=== PATIENT | male | born 1940 | race Caucasian/White ===

== ENCOUNTER → 2016-09-06 | Outpatient (CLI) | payer MEDICARE, OTHER ==
[~2016-09-06] MED LIST: ASP81TEC PO; CALC-80 PO; CHOL200018 PO; COLC0.6T7 PO; DIAZ-345 PO; LEVO175T2 PO; METH4TAB PO; MTH/1CAP PO; MULT-608 PO; NAPR220C11; NIFE30TA82 PO; POTA99TA7 PO; PRD20T PO; ROSU10TA12; VITA200C53 PO; [UNRECOGNIZED DRUG - CODE] PO
--- NOTE | 2016-09-06 15:42 | Diagnostic Imaging Report ---
EXAMINATION: Three views of the cervical spine. INDICATION: Neck pain. FINDINGS: There is satisfactory alignment of the cervical spine. The vertebral body heights are preserved. The disc heights are also preserved. Degenerative changes with anterior osteophytes are seen. No definite posterior osteophyte. There are sclerotic changes along the facet joints, compatible with degenerative changes. The alignment of the lateral masses of C1 and C2 is satisfactory. IMPRESSION: Degenerative facet and disc changes. Dictated by: Dictated on workstation # [id number]
== END ==
LOC: RAD 14:44
PROVIDERS: ATTEND Nurse Practitioner Family
DX: M50.30 Other cervical disc degeneration, unspecified cervical region (principal)
CPT/HCPCS: 72040

== ENCOUNTER → 2016-09-22 | Outpatient (CLI) | payer MEDICARE, OTHER ==
--- NOTE | 2016-09-22 16:06 | Diagnostic Imaging Report ---
CLINICAL INDICATION: Patient complains of neck pain. Onset three weeks. Patient has a history of 14-year-old accident to his neck and chronic neck pain. EXAM: MRI of the cervical spine performed without IV contrast. Sequences include sagittal T2, sagittal T1, sagittal T2 fat-sat, and axial T2. COMPARISON: None. FINDINGS: Limited visualization of the posterior fossa shows no significant abnormality. The cervical spinal cord has normal cord caliber with no significant abnormal cord signal. There is no significant paraspinal soft tissue abnormality. Besides the grade 1 anterolisthesis of C7 on T1, the cervical spine has normal alignment. No acute fracture or other dislocation. There is no significant abnormal cervical vertebral body signal. There are degenerative spurs seen throughout the cervical spine and facet arthropathy. C1-C2: There are degenerative spurs involving the atlanto-odontoid interval anteriorly. Otherwise, this level is unremarkable. C2-C3: There is moderate left facet arthropathy and mild right facet arthropathy. There is minimal ligamentum flavum buckling. There is minimal impression upon the thecal sac posteriorly. There is moderate right neural foraminal narrowing and at least mild left neural foraminal narrowing. C3-C4: There is a small central posterior disc protrusion/herniation and minimal ligamentum flavum buckling. There is inzf-ft-bqaptzou central canal narrowing. There is moderate bilateral facet arthropathy. There is at least bnupgoxk-jl-qamrxu bilateral neural foraminal narrowing. C4-C5: There is minimal ligamentum flavum buckling, severe left facet arthropathy/hypertrophy, and mild right facet arthropathy. There is severe left neural foraminal narrowing. There is no significant right neural foraminal narrowing or central canal narrowing. C5-C6: There is a small posterior disc bulge. There is severe left facet arthropathy/hypertrophy and omly-qe-dgxudbjy right facet arthropathy. There is severe left neural foraminal narrowing. There is mild ligamentum flavum buckling with mild central canal narrowing. There is at least mild right neural foraminal narrowing. C6-C7: There is a diffuse disc bulge with associated small central posterior disc extrusion/herniation. There is mild bilateral facet arthropathy and ligamentum flavum buckling. There is wsltwnxo-py-ulkvze central canal narrowing. There is severe bilateral neural foraminal narrowing. C7-T1: There is grade 1 anterolisthesis C7 on T1. There is moderate bilateral facet arthropathy. There is no significant central spinal canal or neural foraminal narrowing. IMPRESSION: 1: There is multilevel cervical spine degenerative disc disease with multilevel disc bulges, ligamentum flavum buckling, and facet arthropathy, which is worse at the C6-C7 level. This is described in detail above. 2: There is grade 1 anterolisthesis of C7 on T1. Results of this report were discussed with Dr. Kelly Mcclellan via the telephone on 09/22/2016 at 1505 hours. Dictated by: Dictated on workstation # [id number]
== END ==
LOC: RAD 13:44
PROVIDERS: ATTEND Orthopaedic Surgery
DX: M50.31 Other cervical disc degeneration, high cervical region (principal); M43.12 Spondylolisthesis, cervical region
CPT/HCPCS: 72141

== ENCOUNTER → 2016-12-24 | Outpatient (CLI) | payer MEDICARE, OTHER | LOC: RAD 13:29 | PROVIDERS: ATTEND Physician Assistant | DX: I35.1 Nonrheumatic aortic (valve) insufficiency (principal); I25.10 Atherosclerotic heart disease of native coronary artery without angina pectoris; I65.23 Occlusion and stenosis of bilateral carotid arteries; I10 Essential (primary) hypertension | CPT/HCPCS: 93306 ==

== ENCOUNTER → 2017-06-02 | Outpatient (CLI) | payer MEDICARE, OTHER ==
--- NOTE | 2017-06-02 21:10 | Diagnostic Imaging Report ---
Clinical indication: Patient with hematuria starting today. Patient has history of stones and prostate cancer. Patient has surgical history of gallbladder removal, hernia repair, appendectomy and prostate surgery. Exam: X-ray of the abdomen, supine view. Comparison: CT scan of the abdomen and pelvis performed without and with IV contrast dated 10/05/2006. Findings: Again seen are multiple surgical clips in the pelvis. There is a 3 mm calcification just right of the sacrum which is not definitively visualized on the prior CT scan. This may represent a phlebolith, but a distal right ureteral stone cannot be completely excluded. Otherwise there are no stones overlying the regions of both ureters. There is a small to moderate amount of stool seen throughout the colon. There is no intra-abdominal free air or evidence of intestinal obstruction. There are hypertrophic spurs seen throughout the spine. Impression: 1: There is a 3 mm calcification seen to the right of the mid sacral region. This may represent a phlebolith, but a distal right ureteral stone cannot be completely excluded. There is concern for a right ureteral stone, CT scan would better evaluate. 2: The remainder of the exam shows no other significant abnormality. Dictated by: Dictated on workstation # [id number]
== END ==
LOC: RAD 20:43
PROVIDERS: ATTEND Family Medicine
DX: H15.89 Other disorders of sclera (principal); R31.9 Hematuria, unspecified; Z87.442 Personal history of urinary calculi; Z85.46 Personal history of malignant neoplasm of prostate; Z90.49 Acquired absence of other specified parts of digestive tract; Z98.890 Other specified postprocedural states
CPT/HCPCS: 74018

== ENCOUNTER → 2017-06-08 | Outpatient (CLI) | payer MEDICARE, OTHER ==
--- NOTE | 2017-06-08 08:57 | Diagnostic Imaging Report ---
CLINICAL INDICATION: Patient with right-sided stone. EXAM: X-ray of the abdomen supine views. COMPARISON: X-ray of the abdomen dated 06/02/2017. FINDINGS: There is stable appearance and position of the calcification seen to the right side of mid sacral region. There are no other calcifications seen overlying the kidneys or expected pathways of the ureters. Again seen multiple surgical clips in the pelvis. There are phleboliths noted in the left pelvis region. There is a nonobstructed bowel gas pattern. There is no evidence of abdominal free air. There are hypertrophic spurs involving the visualized thoracic and lumbar spine. IMPRESSION: 1: Stable x-ray of the abdomen and pelvis with 3 mm calcification seen to the right of the mid sacral region. This may represent a renal stone in the distal right ureter versus phlebolith. CT scan of abdomen and pelvis would better evaluate. 2: The remainder of this exam shows no significant interval change compared to the prior study of comparison. Dictated by: Dictated on workstation # [id number]
== END ==
LOC: RAD 08:33
PROVIDERS: ATTEND Urology
DX: N20.0 Calculus of kidney (principal)
CPT/HCPCS: 74018

== ENCOUNTER → 2017-06-13 | Outpatient (CLI) | payer MEDICARE, OTHER ==
[~2017-06-13] MED LIST changes: +CATHETER FLUSH 10 ML SYR IV PRN; +IOHEXOL 350 MG/ML 100 ML (OMNIPAQUE 350) VIAL IV ONE; +NS 100 ML (IVPB) BAG IV ONE
[2017-06-13 11:44] LABS: BUN/CREATININE RATIO 20; CREATININE SERUM 0.97 MG/DL (0.60-1.30); GFR ESTIMATED > 60
--- NOTE | 2017-06-13 13:54 | Diagnostic Imaging Report ---
PROCEDURE: CT abdomen and pelvis with and without contrast. TECHNIQUE: Precontrast acquisitions were acquired through the abdomen and pelvis. Multiple contiguous axial images were obtained through the abdomen and pelvis after the administration of intravenous contrast. INDICATION: Gross hematuria. COMPARISON: Comparison is made with prior CT of the abdomen and pelvis from 10/05/2006. FINDINGS: The lung bases are clear. Multiple well-defined low-density masses within the liver are noted consistent with cysts. The gallbladder is unremarkable. The pancreas and spleen are unremarkable. No adrenal mass is detected. There are multiple renal cysts bilaterally. There is an enlarging cyst in the posterior aspect of the left kidney measured 3.5 cm. This compares with 1.3 cm on prior. No enhancement is detected. No renal calculi are detected. There is no hydronephrosis. The ureters are normal in course and caliber. The bladder is unremarkable. No wall thickening or masses detected. The aorta is heavily calcified but non-aneurysmal. Small and large bowel loops are of normal caliber. There is significant diverticulosis of the sigmoid colon but no evidence of acute diverticulitis. There is no ascites. There are postop changes in the pelvis with multiple surgical clips present. Bony structures are unremarkable. IMPRESSION: 1. Hepatic and renal cysts. 2. No evidence of urinary tract calculi, solid mass or hydronephrosis. 3. Uncomplicated diverticulosis. Dictated by: Dictated on workstation # [id number]
== END ==
LOC: RAD 10:58
PROVIDERS: ATTEND Urology
DX: N28.1 Cyst of kidney, acquired (principal); K76.89 Other specified diseases of liver; K57.30 Diverticulosis of large intestine without perforation or abscess without bleeding
CPT/HCPCS: 36415; 74178; 82565; 84520

== ENCOUNTER → 2018-02-28 | Outpatient (CLI) | payer MEDICARE, OTHER ==
[~2018-02-28] MED LIST changes: -CATHETER FLUSH 10 ML SYR IV PRN; -IOHEXOL 350 MG/ML 100 ML (OMNIPAQUE 350) VIAL IV ONE; -NS 100 ML (IVPB) BAG IV ONE
--- NOTE | 2018-02-28 18:23 | Diagnostic Imaging Report ---
INDICATION: Shortness of breath. TIME OF EXAM: 4:17 p.m. COMPARISON: Comparison is made with prior chest from 01/29/2016. The heart size is normal. The pulmonary vascularity is unremarkable. The lungs are clear. No infiltrate, effusion or pneumothorax is detected. IMPRESSION: No acute cardiopulmonary process is detected. Dictated by: Dictated on workstation # [id number]
== END ==
LOC: RAD 15:40
PROVIDERS: ATTEND Internal Medicine Cardiovascular Disease
DX: C61 Malignant neoplasm of prostate (principal); I65.23 Occlusion and stenosis of bilateral carotid arteries; I10 Essential (primary) hypertension; I34.0 Nonrheumatic mitral (valve) insufficiency; I25.10 Atherosclerotic heart disease of native coronary artery without angina pectoris
CPT/HCPCS: 71046

== ENCOUNTER → 2018-03-15 | Outpatient (CLI) | payer MEDICARE, OTHER ==
[~2018-03-15] MED LIST changes: +CATHETER FLUSH 10 ML SYR IV PRN
[2018-03-15 10:01] VITALS: BP 192/77
--- NOTE | 2018-03-15 18:46 | STRESS TEST ---
DATE OF SERVICE: 03/15/2018 EXERCISE MYOVIEW STRESS TEST REPORT REFERRING PHYSICIAN: Dr. Mcclellan. Baseline heart rate is 62, baseline blood pressure is 138/72. Baseline EKG is sinus rhythm with frequent PVCs. In summary, the patient was injected with 10.65 mCi of technetium-99 Myoview and the resting images were obtained. Then, the patient started exercising with a baseline heart rate, blood pressure and EKG mentioned above. At peak stress level, the patient was injected with 30.6 mCi of technetium-99 Myoview. He was able to exercise for 5 minutes 30 seconds on standard Mata protocol. With peak exercise level, the patient continued to have frequent PVCs with [address] depression in lead 3 and aVF. No acute ischemic changes. The resting and stress images were reviewed and compared in the short axis, horizontal long axis, and vertical long axis views. Review of the images showed diaphragmatic attenuation with decreased uptake at the anterior apical segment with subtle reversibility, no significant ischemia was noted. SSS is 4, SDS is 4, TID value 1.01. On the gated images, the left ventricle appeared to be in normal size with normal contractility. Calculated ejection fraction 53%. CONCLUSION: 1. Fair exercise tolerance, a total of 5 minutes 32 seconds on standard Mata protocol, total of 7.1 METS achieving 86% of maximum expected heart rate. 2. Baseline hypertension with severe hypertensive response to exercise returned to baseline during recovery. 3. Frequent premature ventricular contractions persisted throughout test. 4. Diaphragmatic attenuation with subtle abnormality, no significant ischemia was noted. 5. Normal left ventricular size with normal contractility. Calculated ejection fraction 53%. Job ID: [id number] DocumentID: [id number] Dictated Date: 03/15/2018 13:29:56 [employer] Date: 03/15/2018 18:45:22 Dictated By: SHARIF BHAGAT MD
== END ==
LOC: CARD 07:58
PROVIDERS: ATTEND Internal Medicine Cardiovascular Disease
DX: I25.10 Atherosclerotic heart disease of native coronary artery without angina pectoris (principal); I10 Essential (primary) hypertension; I34.0 Nonrheumatic mitral (valve) insufficiency; C61 Malignant neoplasm of prostate
CPT/HCPCS: 78452; 93017

== ENCOUNTER → 2018-03-16 | Outpatient (CLI) | payer MEDICARE, OTHER ==
[~2018-03-16] MED LIST changes: -CATHETER FLUSH 10 ML SYR IV PRN
== END ==
LOC: CARD 13:02
PROVIDERS: ATTEND Internal Medicine Cardiovascular Disease
DX: I25.10 Atherosclerotic heart disease of native coronary artery without angina pectoris (principal); I65.29 Occlusion and stenosis of unspecified carotid artery; I10 Essential (primary) hypertension; I34.0 Nonrheumatic mitral (valve) insufficiency; C61 Malignant neoplasm of prostate; I08.3 Combined rheumatic disorders of mitral, aortic and tricuspid valves
CPT/HCPCS: 93306

== ENCOUNTER → 2018-09-18 | Outpatient (CLI) | payer MEDICARE, OTHER | LOC: RT 14:29 | PROVIDERS: ATTEND Internal Medicine Cardiovascular Disease | DX: I35.0 Nonrheumatic aortic (valve) stenosis (principal); I25.10 Atherosclerotic heart disease of native coronary artery without angina pectoris; I10 Essential (primary) hypertension | CPT/HCPCS: 94060; 94726; 94729 ==

== ENCOUNTER → 2019-05-28 | Outpatient (CLI) | payer MEDICARE ==
--- NOTE | 2019-05-28 15:12 | Diagnostic Imaging Report ---
PROCEDURE: US Scrotum. TECHNIQUE: Multiple real-time grayscale images were obtained over the scrotum in various projections bilaterally. INDICATION: Testicular swelling. FINDINGS: There are no prior studies available for comparison. Spectral and color-flow imaging was also performed. Both testicles are identified. The right testicle measures 4.9 x 2.3 x 3.6 while the left testicle is estimated to be 4.7 x 2.5 x 3.6 cm. There is no evidence for a solid testicular mass and there is no sign of torsion. The left epididymis is somewhat prominent and does appear to contain a small area of calcification. The left epididymis is not hyperemic however and there is no sign of epididymitis. The right epididymis is slightly smaller than the left. There is no evidence for epididymitis on the right either. There is a small septated hydrocele on the left. There is no evidence for hydrocele formation on the right and there is no sign of varicocele formation. IMPRESSION: 1. There is no solid testicular mass or torsion. 2. There is no evidence for acute epididymitis. The small area of calcification within the left epididymis is of uncertain etiology. This could be a sequela of prior episodes of inflammation. 3. There is a small septated hydrocele on the left. Dictated by: Dictated on workstation # [id number]
== END ==
LOC: RAD 12:05
PROVIDERS: ATTEND Nurse Practitioner Family
DX: N50.89 Other specified disorders of the male genital organs (principal); N43.2 Other hydrocele
CPT/HCPCS: 76870

== ENCOUNTER 2019-09-22 11:30 | Emergency (ER) | payer MEDICARE | END 2019-09-22 11:42 | disposition left against medical advice (07) | LOC: ER 11:30 | DX: R05 Cough (principal) ==

== ENCOUNTER 2020-01-28 22:00 | Emergency (ER) | payer MEDICARE, OTHER ==
[~2020-01-28] VITALS: Ht 182.9 cm; Wt 95.3 kg
[2020-01-28] MEDS ORDERED: CEPHALEXIN 250 MG (KEFLEX) CAP PO STA (22:43)
[2020-01-28 22:49] VITALS: BP 146/84
--- NOTE | 2020-01-28 22:52 | ED Lower Extremity ---
General Stated Complaint: RIGHT FOOT LACERATION Source: patient Exam Limitations: no limitations History of Present Illness Date Seen by Provider: Jan 28, 2020 Time Seen by Provider: 22:25 Initial Comments Here with report of laceration to the bottom of the right foot near the fifth digit. States that he scraped his foot across a grate that caused the bleeding. Denies other injury. Tetanus up-to-date. Onset: just prior to arrival (proximally 30 minutes ago) Pain/Injury Location: right foot Method of Injury: incised Modifying Factors: Improves With Immobilization; Worse With Movement Allergies and Home Medications Allergies Coded Allergies: bupivacaine (Verified Allergy, Intermediate, 10/05/12) triamcinolone (Verified Allergy, Intermediate, 10/05/12) Home Medications Calcium Carbonate/Vitamin D3 1 Each Tablet, 2 EACH PO DAILY, (Reported) Cholecalciferol (Vitamin D3) 2,000 Unit Capsule, 2,000 UNIT PO DAILY, (Reported) Diazepam 5 Mg Tablet, 1 EACH PO TID PRN Prescribed by: CHARLENE NEFF on 06/13/141747 Levothyroxine Sodium 175 Mcg Tablet, 1 EACH PO DAILY, (Reported) Methylprednisolone 4 Mg/Dose-Pack Tab.ds.pk, 0 PO UD Prescribed by: EDSON BOSS on 10/05/12 0852 Multivitamins 1 Tab Tablet, 1 TAB PO DAILY, (Reported) Nifedipine 30 Mg Tab.osm.24, 1 EACH PO DAILY, (Reported) Phytosterol 400 Mg Tablet, 400 MG PO DAILY, (Reported) Potassium 99 Mg Tablet, 20 MG PO DAILY, (Reported) Prednisone 20 Mg Tab, 40 MG PO DAILY Prescribed by: CHARLENE NEFF on 06/13/141747 Vitamin E (Dl,Tocopheryl Acet) 200 Unit Capsule, 200 UNIT PO DAILY, (Reported) Patient Home Medication List Home Medication List Reviewed: Yes Review of Systems Constitutional: see HPI; No chills, No fever Respiratory: no symptoms reported Cardiovascular: no symptoms reported Musculoskeletal: No joint pain, No joint swelling Skin: see HPI, change in color, lesions Past Cuuhuhq-Obpvoo-Yhlsnj Hx Past Med/Social Hx: Reviewed Nursing Past Med/Soc Hx Patient Social History Recent Foreign Travel: No Contact w/Someone Who Travel: No Immunizations Up To Date Tetanus Booster (TDap): Less than 5yrs Seasonal Allergies Seasonal Allergies: No Past Medical History Surgeries: Yes Orthopedic, Prostatectomy, Tonsillectomy Irregular Heartbeat Reproductive Disorders: No Sexually Transmitted Disease: No Genitourinary: Yes Prostate Problems Gastrointestinal: Yes Colitis Musculoskeletal: Yes Arthritis, Back Injury, Chronic Back Pain Endocrine: Yes Hypothyroidsim Prostate, Skin Family Medical History Reviewed Nursing Family Hx Physical Exam Vital Signs Capillary Refill : Height, Weight, BMI Height: 6'0" Weight: 210lbs. oz. 95.038042cu; BMI Method:Estimated General Appearance: WD/WN, no apparent distress Cardiovascular: regular rate, rhythm, no murmur Respiratory: lungs clear, normal breath sounds Feet: right foot pain, right foot soft tissue tenderness, right foot other (1 cm x 3 cm superficial skin avulsion to the bottom of the foot in line with the fifth metatarsal up to but not including the fifth digit.) Neurologic/Psychiatric: alert, oriented x 3 Skin: warm/dry, other (wound as above) Progress/Results/Core Measures Results/Orders My Orders Orders - CHARLENE NEFF MD Cephalexin Capsule (Keflex Capsule) (01/28/20 22:43) Progress Progress Note : Progress Note Seen and evaluated. Wound cleaned with copious amount of sterile saline. Wound examined and is not amiable to suturing as it is more of a divot and tissue loss. Callus skin removed. Wound covered with Xeroform gauze and bulky dressing. Tetanus up-to-date. Keflex 500 mg by mouth ordered. Discharged home with return precautions. Patient and family verbalize understanding instructions and agreeme nt with plan. We will do wound check on Tuesday. Departure Impression Primary Impression: Laceration of right foot excluding toes Qualified Codes: S91.311A - Laceration without foreign body, right foot, initial encounter Disposition: HOME, SELF-CARE Condition: Stable Departure-Patient Inst. Decision time for Depature: 22:55 Referrals: KANIKA MAGAÑA MD (PCP/Family) Primary Care Physician Patient Instructions: Wound Care (DC) Add. Discharge Instructions: Returned Tuesday at around 11 AM, 01/30/20, for recheck of wound and dressing change. Take antibiotics as directed. You may replace dressing if it becomes soiled but otherwise leave it in place until wound check. Return for worse pain, swelling, fever, foul-smelling drainage or other concerns as needed. Scripts Cephalexin (Cephalexin) 500 Mg Tablet 500 MG PO QID, #28 TAB 0 Refills Prov: CHARLENE NEFF MD 01/28/20 CHARLENE NEFF MD Jan 28, 2020 22:52
--- NOTE | 2020-01-28 22:54 | NUR ---
Wound cleaned with NS et chlorhexidine solution. Xeroform gauze applied et covered with gauze drsg.
[2020-01-28] MEDS ORDERED: CEPH500T PO (22:57)
[2020-01-29] MEDS ORDERED: CEPH500C PO (02:02)
== END 2020-01-28 23:00 | disposition home or self-care (01) ==
LOC: EDUNIT# 22:00 → ER 22:02
DX: S91.311A Laceration without foreign body, right foot, initial encounter (principal); E03.9 Hypothyroidism, unspecified; Z79.890 Hormone replacement therapy; Z88.8 Allergy status to other drugs, medicaments and biological substances; Z79.52 Long term (current) use of systemic steroids; W23.1XXA Caught, crushed, jammed, or pinched between stationary objects, initial encounter
CPT/HCPCS: 99283

== ENCOUNTER 2020-01-30 11:07 | Emergency (ER) | payer MEDICARE, OTHER ==
[~2020-01-30] VITALS: Ht 182.9 cm; Wt 95.3 kg
[~2020-01-30 11:07] MED LIST changes: +CEPH500C PO; +CEPH500T PO
[2020-01-30 11:13] VITALS: BP 141/75
--- NOTE | 2020-01-30 11:24 | ED Lower Extremity ---
General Chief Complaint: Lower Extremity Stated Complaint: R TOE F/U Nursing Triage Note: PT AMBULATE TO TRIAGE FOR FOLLOW-UP AFTER RIGHT TOE INJURY. Nursing Sepsis Screen: No Definite Risk History of Present Illness Date Seen by Provider: Jan 30, 2020 Time Seen by Provider: 11:22 Initial Comments 79-year-old male presents for recheck of wound on right foot. Patient was seen here on 02-14 following a injury to his plantar aspect of his right great toe. Patient was instructed to come back to recheck at the well. He has no increased pain, he is able to ambulate using a walker. He is been changing dressing as instructed, no discharge. He was placed on Keflex. Allergies and Home Medications Allergies Coded Allergies: bupivacaine (Verified Allergy, Intermediate, 10/05/12) triamcinolone (Verified Allergy, Intermediate, 10/05/12) Home Medications Calcium Carbonate/Vitamin D3 1 Each Tablet, 2 EACH PO DAILY, (Reported) Cephalexin 500 Mg Capsule, 500 MG PO QID Prescribed by: CHARLENE NEFF on 01/29/20 0202 Cholecalciferol (Vitamin D3) 2,000 Unit Capsule, 2,000 UNIT PO DAILY, (Reported) Diazepam 5 Mg Tablet, 1 EACH PO TID PRN Prescribed by: CHARLENE NEFF on 06/13/14 1748 Levothyroxine Sodium 175 Mcg Tablet, 1 EACH PO DAILY, (Reported) Methylprednisolone 4 Mg/Dose-Pack Tab.ds.pk, 0 PO UD Prescribed by: EDSON BOSS on 10/05/12 0852 Multivitamins 1 Tab Tablet, 1 TAB PO DAILY, (Reported) Nifedipine 30 Mg Tab.osm.24, 1 EACH PO DAILY, (Reported) Phytosterol 400 Mg Tablet, 400 MG PO DAILY, (Reported) Potassium 99 Mg Tablet, 20 MG PO DAILY, (Reported) Prednisone 20 Mg Tab, 40 MG PO DAILY Prescribed by: CHARLENE NEFF on 06/13/14 1748 Vitamin E (Dl,Tocopheryl Acet) 200 Unit Capsule, 200 UNIT PO DAILY, (Reported) Patient Home Medication List Home Medication List Reviewed: Yes Review of Systems Constitutional: No chills, No fever EENTM: no symptoms reported Respiratory: no symptoms reported Cardiovascular: no symptoms reported Gastrointestinal: no symptoms reported Genitourinary: no symptoms reported Musculoskeletal: see HPI Skin: see HPI Psychiatric/Neurological: No Symptoms Reported Past Ofuaocs-Nwgzgf-Vammpo Hx Past Med/Social Hx: Reviewed Nursing Past Med/Soc Hx Patient Social History Alcohol Use: Denies Use Recreational Drug Use: No (ALCOHOL QUIT 23 YRS AGO) Smoking Status: Never a Smoker 2nd Hand Smoke Exposure: No Recent Foreign Travel: No Contact w/Someone Who Travel: No Recent Infectious Disease Expo: No Physical Abuse: No Sexual Abuse: No Mistreated: No Fear: No Immunizations Up To Date Tetanus Booster (TDap): Less than 5yrs Seasonal Allergies Seasonal Allergies: No Past Medical History Surgeries: Yes Orthopedic, Prostatectomy, Tonsillectomy Respiratory: No Cardiac: Yes (PVC'S) Irregular Heartbeat Neurological: No Reproductive Disorders: No Sexually Transmitted Disease: No Genitourinary: Yes Prostate Problems Gastrointestinal: Yes Colitis Musculoskeletal: Yes Arthritis, Back Injury, Chronic Back Pain Endocrine: Yes Hypothyroidsim Cancer: Yes (squamous cell carcinoma) Prostate, Skin Psychosocial: No Integumentary: No Blood Disorders: No Physical Exam Vital Signs Vital Signs - First Documented 01/30/20 11:13 Temp 36.4 Pulse 61 Resp 17 B/P (MAP) 141/75 (97) O2 Delivery Room Air Capillary Refill : Less Than 3 Seconds Height, Weight, BMI Height: 6'0" Weight: 210lbs. oz. 95.545097ee; 28.00 BMI Method:Estimated General Appearance: no apparent distress Cardiovascular: normal peripheral pulses, regular rate, rhythm Respiratory: lungs clear, normal breath sounds Feet: right foot soft tissue tenderness, right foot swelling Skin: other (wound to the plantar aspect of the right great toe shows no signs of infection appropriate healing at this point.) Progress/Results/Core Measures Results/Orders Vital Signs/I&O 01/30/20 11:13 Temp 36.4 Pulse 61 Resp 17 B/P (MAP) 141/75 (97) O2 Delivery Room Air Blood Pressure Mean: 97 Progress Progress Note : Time: 11:28 Progress Note Discussed with patient the need to continue dressing changes, keep clean with warm soapy water. He should follow-up with his primary care provider Tuesday or Tuesday of next week for recheck in today symptoms and further monitoring. Patient stable and discharged home Departure Impression Primary Impression: Encounter for wound re-check Disposition: 01 HOME, SELF-CARE Condition: Stable Departure-Patient Inst. Referrals: KANIKA MAGAÑA MD (PCP/Family) Primary Care Physician Patient Instructions: Wound Care (DC) Add. Discharge Instructions: Keep clean with warm soapy water Daily dressing changes Please schedule an appointment with your primary care provider on Tuesday or Tuesday of next week for recheck and long-term management All discharge instructions reviewed with patient and/or family. Voiced understanding. NIR HURLEY DO Jan 30, 2020 11:24
== END 2020-01-30 11:34 | disposition home or self-care (01) ==
LOC: EDUNIT# 11:07 → ER 11:08
DX: Z48.00 Encounter for change or removal of nonsurgical wound dressing (principal); E03.9 Hypothyroidism, unspecified; Z85.46 Personal history of malignant neoplasm of prostate; Z85.828 Personal history of other malignant neoplasm of skin; Z79.890 Hormone replacement therapy; Z88.8 Allergy status to other drugs, medicaments and biological substances; Z79.52 Long term (current) use of systemic steroids

== ENCOUNTER → 2020-03-06 | Outpatient (CLI) | payer MEDICARE, OTHER | LOC: CARD 15:00 | PROVIDERS: ATTEND Physician Assistant | DX: I08.3 Combined rheumatic disorders of mitral, aortic and tricuspid valves (principal) | CPT/HCPCS: 93306 ==

== ENCOUNTER → 2020-08-19 | Outpatient (CLI) | payer MEDICARE, OTHER ==
--- NOTE | 2020-08-19 09:59 | Diagnostic Imaging Report ---
INDICATION: Left hip pain. TIME OF EXAM: 9:40 AM. TECHNIQUE: Two views of the left hip were obtained. FINDINGS: There is normal femoroacetabular alignment. There is mild superior hip joint space narrowing. The femoral head and neck are intact. No fractures are seen. There are surgical clips in the left groin. IMPRESSION: Mild to moderate degenerative changes of the left hip. No acute hip fracture is detected. Dictated by: Dictated on workstation # [id number]
== END ==
LOC: RAD 09:27
PROVIDERS: ATTEND Nurse Practitioner Family
DX: M16.12 Unilateral primary osteoarthritis, left hip (principal)
CPT/HCPCS: 73502

== ENCOUNTER → 2020-09-05 | Outpatient (CLI) | payer MEDICARE, OTHER | LOC: CARD 12:00 | PROVIDERS: ATTEND Internal Medicine Cardiovascular Disease | DX: I08.3 Combined rheumatic disorders of mitral, aortic and tricuspid valves (principal); I11.9 Hypertensive heart disease without heart failure; I25.10 Atherosclerotic heart disease of native coronary artery without angina pectoris | CPT/HCPCS: 93306 ==

== ENCOUNTER → 2020-12-16 | Outpatient (CLI) | payer MEDICARE, OTHER ==
[~2020-12-16] MED LIST changes: +GADOBUTROL 10 MMOL/10 ML (GADAVIST) VIAL IV ONE
--- NOTE | 2020-12-16 10:41 | Diagnostic Imaging Report ---
PROCEDURE: MR imaging of the brain with and without contrast. TECHNIQUE: Multiplanar, multisequence MR imaging of the brain was performed with and without contrast. INDICATION: Memory problems. COMPARISON: 04/02/2008. Findings: No acute ischemia, mass, or hemorrhage. No abnormal enhancement. T2 hyperintense signal is seen in the periventricular and subcortical white matter. The ventricles and cortical sulci are prominent. The basilar cisterns are symmetric and unremarkable. The sellar and suprasellar regions have a normal appearance. The brainstem and posterior fossa are unremarkable. Mucosal thickening is seen throughout the paranasal sinuses. The mastoid air cells demonstrate normal signal characteristics. The globes and orbits are symmetric and unremarkable. The scalp and calvarium have a normal appearance. Effusion is seen in the left TMJ. Impression: 1. No acute ischemia, mass, or hemorrhage. No abnormal enhancement. 2. Generalized parenchymal volume loss with scattered chronic microvascular disease. 3. Mucosal thickening throughout the paranasal sinuses. 4. Joint effusion in the left TMJ. Dictated by: Dictated on workstation # [id number]
== END ==
LOC: RAD 09:21
PROVIDERS: ATTEND Family Medicine
DX: I67.89 Other cerebrovascular disease (principal); J34.89 Other specified disorders of nose and nasal sinuses; M26.69 Other specified disorders of temporomandibular joint
CPT/HCPCS: 70553

== ENCOUNTER → 2021-04-03 | Outpatient (CLI) | payer MEDICARE, OTHER ==
[~2021-04-03] MED LIST changes: -GADOBUTROL 10 MMOL/10 ML (GADAVIST) VIAL IV ONE; +HOLD METFORMIN - RECEIVED CONTRAST 20 ML VIAL IV SCH; +IOHEXOL 350 MG/ML 100 ML (OMNIPAQUE 350) VIAL IV ONE; +NS 100 ML (IVPB) BAG IV ONE
[2021-04-03 09:07] LABS: CREATININE SERUM 0.96 MG/DL (0.60-1.30)
--- NOTE | 2021-04-03 11:11 | Diagnostic Imaging Report ---
EXAM: CT ANGIO NECK W INDICATION: Carotid stenosis. COMPARISON: None. 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 Soft plaque or thrombus results in 90-99% narrowing of the right internal carotid artery origin. There is 70-89% narrowing of the left internal carotid artery origin due to calcified atherosclerotic plaque. Less than 50% narrowing of the bilateral cavernous internal carotid arteries. The basilar, bilateral vertebral, common carotid arteries demonstrate no high-grade narrowing, aneurysm or dissection. The visualized [place] is intact. Visualized dural venous sinuses are normally opacified. Moderate spondylotic changes in the cervical spine are greatest at C6-C7. No acute osseous findings. Mucosal thickening in the ethmoid and frontal sinuses. The mastoids are clear. The skull base is intact. Paravertebral soft tissues are unremarkable. Lung apices are clear. IMPRESSION: 1. 90-99% stenosis of the right internal carotid artery origin. 2. 70-89% stenosis of the left internal carotid artery origin. 3. Mucosal thickening in ethmoid and frontal sinuses. Dictated by: Dictated on workstation # [id number]
== END ==
LOC: RAD 09:15
PROVIDERS: ATTEND Internal Medicine Cardiovascular Disease
DX: I65.23 Occlusion and stenosis of bilateral carotid arteries (principal); J32.2 Chronic ethmoidal sinusitis; J32.1 Chronic frontal sinusitis
CPT/HCPCS: 36415; 70498; 82565; 84520

== ENCOUNTER → 2021-05-25 | Outpatient (RCR) | payer MEDICARE, OTHER ==
[~2021-05-25] MED LIST changes: -HOLD METFORMIN - RECEIVED CONTRAST 20 ML VIAL IV SCH; -IOHEXOL 350 MG/ML 100 ML (OMNIPAQUE 350) VIAL IV ONE; -NS 100 ML (IVPB) BAG IV ONE
== END | disposition home or self-care (01) ==
PROVIDERS: ATTEND Nurse Practitioner
DX: I69.354 Hemiplegia and hemiparesis following cerebral infarction affecting left non-dominant side (principal)

== ENCOUNTER → 2021-06-25 | Outpatient (RCR) | payer MEDICARE, OTHER | END | disposition home or self-care (01) | PROVIDERS: ATTEND Nurse Practitioner | DX: I69.354 Hemiplegia and hemiparesis following cerebral infarction affecting left non-dominant side (principal) ==

== ENCOUNTER → 2021-07-03 | Outpatient (CLI) | payer MEDICARE, OTHER ==
--- NOTE | 2021-07-03 13:35 | Diagnostic Imaging Report ---
PROCEDURE: US Thyroid. TECHNIQUE: Multiple real-time grayscale images were obtained of the thyroid in various projections. INDICATION: Right-sided thyroid nodule. COMPARISON: CTA dated 04/03/2021. FINDINGS: The right lobe of the thyroid gland measures 4.6 x 1.2 x 1.5 cm. A solid ovoid isoechoic nodule with indistinct margins measuring 0.5 x 0.4 cm is identified within the anterior aspect of the inferior pole of the right thyroid lobe. No additional right thyroid nodules. The left lobe of the thyroid gland measures 4.4 x 1.1 x 1.1 cm. It contains a homogeneous echotexture without discrete nodule. The isthmus is unremarkable. IMPRESSION: 0.5 cm TI-RADS 3 nodule within the right thyroid lobe. Given morphology and size, no definitive follow-up of this thyroid nodule is necessary unless clinically indicated otherwise. Dictated by: Dictated on workstation # [id number]
== END ==
LOC: RAD 12:00
PROVIDERS: ATTEND Nurse Practitioner Family
DX: E04.1 Nontoxic single thyroid nodule (principal)
CPT/HCPCS: 76536

== ENCOUNTER 2021-07-21 13:31 | Outpatient (RCR) | payer MEDICARE, OTHER | END 2021-07-25 | disposition home or self-care (01) | PROVIDERS: ATTEND Nurse Practitioner | DX: I69.354 Hemiplegia and hemiparesis following cerebral infarction affecting left non-dominant side (principal) ==

== ENCOUNTER 2021-08-06 13:55 | Outpatient (RCR) | payer MEDICARE, OTHER | END 2021-08-25 | disposition home or self-care (01) | PROVIDERS: ATTEND Nurse Practitioner | DX: I69.354 Hemiplegia and hemiparesis following cerebral infarction affecting left non-dominant side (principal); I65.23 Occlusion and stenosis of bilateral carotid arteries; I11.9 Hypertensive heart disease without heart failure ==

== ENCOUNTER → 2021-08-17 | Outpatient (CLI) | payer MEDICARE, OTHER ==
--- NOTE | 2021-08-17 16:46 | Diagnostic Imaging Report ---
INDICATION: Renal cyst. TECHNIQUE: Bilateral renal sonography performed in the routine fashion. FINDINGS: The right kidney measured 11.3 x 5.5 x 5.3 cm. The left kidney measured 11.0 x 5.1 x 5.7 cm. Both kidneys showed no hydronephrosis or solid mass. There is a cyst in the lower pole of the left kidney measuring 4.4 x 4.4 cm. Urinary bladder appears unremarkable. IMPRESSION: 4.4 cm simple cyst in the inferior pole of the left kidney. There are no other focal abnormalities identified. Dictated by: Dictated on workstation # [id number]
== END ==
LOC: RAD 14:34
PROVIDERS: ATTEND Family Medicine
DX: N28.1 Cyst of kidney, acquired (principal)
CPT/HCPCS: 76770

== ENCOUNTER → 2021-12-09 | Outpatient (CLI) | payer MEDICARE, OTHER ==
[~2021-12-09] MED LIST changes: +REGADENOSON 0.4 MG/5 ML SYR (LEXISCAN) IV ONE
[2021-12-09] MEDS: CATHETER FLUSH 10 ML SYR IVP PRN ×2 (07:20→09:03)
[2021-12-09 09:00] VITALS: BP 127/73
--- NOTE | 2021-12-09 14:59 | Cardiology Stress Test Report ---
Stress Test Report Date of Procedure/Referring: Date of Procedure: Dec 09, 2021 PCP Kanika Mcclellan MD Admitting Physician Admitting Physician: Attending Physician: Tonya Bliss MD Indications: CP Baseline Heart Rate: 52 Baseline Blood Pressure: Blood Pressure Systolic: 127 Blood Pressure Diastolic: 73 Baseline Vitals Vital Signs Date Time Temp Pulse Resp B/P (MAP) Pulse Ox O2 Delivery O2 Flow Rate FiO2 12/09/21 09:00 57 127/73 (91) 95 Room Air Baseline EKG: Baseline EKG: NSR Summary After explaining the procedure to the patient, he signed a consent and then brought to the stress nuclear laboratory. Patient received 0.4 mg Lexiscan for stress test, ECG, heart rate and blood pressure were monitored continuously. Resting and stress dose of radio tracer were injected, imaging was acquired and reviewed in short axis, horizontal long axis and vertical long axis views. TID: 0.95 SSS: 4 SDS: 2 EF: 59 1. Patient tolerated Lexiscan well 2. Diaphragmatic attenuation with mild decrease uptake involving the inferoapical segment and the apical segment of the inferolateral wall with mild reversibility, most probably secondary to diaphragmatic attenuation. Overall there is no significant ischemia or infarction on SPECT images 3. Normal left ventricular size, ejection fraction 59% Copy Copies To 1: KANIKA MCCLELLAN MD, BASHAR J MD Dec 09, 2021 14:59
== END ==
LOC: CARD 07:30
PROVIDERS: ATTEND Internal Medicine Cardiovascular Disease
DX: I25.10 Atherosclerotic heart disease of native coronary artery without angina pectoris (principal); I10 Essential (primary) hypertension
CPT/HCPCS: 78452; 93017; A9502

== ENCOUNTER → 2021-12-25 | Outpatient (RCR) | payer MEDICARE, OTHER ==
[~2021-12-25] MED LIST changes: -REGADENOSON 0.4 MG/5 ML SYR (LEXISCAN) IV ONE
== END | disposition home or self-care (01) ==
PROVIDERS: ATTEND Family Medicine
DX: R53.1 Weakness (principal); R42 Dizziness and giddiness; R26.89 Other abnormalities of gait and mobility; I11.9 Hypertensive heart disease without heart failure

== ENCOUNTER → 2022-01-07 | Outpatient (CLI) | payer MEDICARE, OTHER ==
--- NOTE | 2022-01-07 18:15 | Diagnostic Imaging Report ---
PROCEDURE: US Thyroid. TECHNIQUE: Multiple real-time grayscale images were obtained of the thyroid in various projections. INDICATION: Follow-up thyroid nodule. COMPARISON: 07/03/2021 ultrasound. FINDINGS: Right lobe measures 4.1 x 1.2 x 1.2 cm. There is a 5 x 4 x 3 mm heterogeneous solid nodule with spongiform appearance that has not changed significantly since previous exam. Left lobe measures 3.6 x 1.2 x 1.1 cm and appears normal. IMPRESSION: Stable appearing spongiform nodule in the right lobe measuring 5 mm. This is not considered suspicious. TI-RADS 2. Dictated by: Dictated on workstation # [id number]
== END ==
LOC: RAD 10:32
PROVIDERS: ATTEND Family Medicine
DX: E04.1 Nontoxic single thyroid nodule (principal)
CPT/HCPCS: 76536

== ENCOUNTER 2022-01-20 11:45 | Outpatient (RCR) | payer MEDICARE, OTHER | END 2022-01-25 | disposition home or self-care (01) | PROVIDERS: ATTEND Family Medicine | DX: R53.1 Weakness (principal); R42 Dizziness and giddiness; R26.89 Other abnormalities of gait and mobility; I11.9 Hypertensive heart disease without heart failure ==

== ENCOUNTER 2022-02-03 08:49 | Outpatient (RCR) | payer MEDICARE, OTHER | END 2022-02-03 09:33 | disposition home or self-care (01) | PROVIDERS: ATTEND Family Medicine | DX: R53.1 Weakness (principal); R42 Dizziness and giddiness; R26.89 Other abnormalities of gait and mobility; I11.9 Hypertensive heart disease without heart failure ==

== ENCOUNTER 2022-04-23 13:55 | Outpatient (RCR) | payer MEDICARE, OTHER | END 2022-05-27 | disposition home or self-care (01) | LOC: CR3 13:55 | PROVIDERS: ATTEND Family Medicine | DX: Z29.8 Encounter for other specified prophylactic measures (principal) ==

== ENCOUNTER 2022-06-24 09:50 | Outpatient (RCR) | payer MEDICARE, OTHER | END 2022-06-25 | disposition home or self-care (01) | PROVIDERS: ATTEND Family Medicine | DX: R53.1 Weakness (principal) ==

== ENCOUNTER 2022-07-21 10:36 | Outpatient (RCR) | payer MEDICARE, OTHER | END 2022-07-25 | disposition home or self-care (01) | PROVIDERS: ATTEND Family Medicine | DX: R53.1 Weakness (principal); R26.89 Other abnormalities of gait and mobility; Z91.81 History of falling ==

== ENCOUNTER 2022-08-25 11:20 | Outpatient (RCR) | payer MEDICARE, OTHER | END 2022-08-25 15:54 | disposition home or self-care (01) | PROVIDERS: ATTEND Family Medicine | DX: R53.1 Weakness (principal); R26.89 Other abnormalities of gait and mobility ==

== ENCOUNTER 2023-01-24 09:03 | Outpatient (RCR) | payer MEDICARE, OTHER | END 2023-01-25 | disposition home or self-care (01) | PROVIDERS: ATTEND Nurse Practitioner | DX: M54.50 Low back pain, unspecified (principal); G89.29 Other chronic pain; Z74.09 Other reduced mobility ==

== ENCOUNTER 2023-02-23 16:03 | Outpatient (RCR) | payer MEDICARE, OTHER | END 2023-02-24 | disposition home or self-care (01) | PROVIDERS: ATTEND Nurse Practitioner | DX: M54.50 Low back pain, unspecified (principal); G89.29 Other chronic pain; Z74.09 Other reduced mobility ==